=== PATIENT | female | born 1955 | race Caucasian/White ===

== ENCOUNTER 2018-05-11 02:41 | Emergency (ER) | payer SELFPAY ==
[2018-05-11] MEDS ORDERED: SOD CHLORIDE 0.9% 500 ML IV (06:09)
== END 2018-05-11 05:16 | disposition left against medical advice (07) ==
LOC: E/R 05:16
DX: Z53.21 Procedure and treatment not carried out due to patient leaving prior to being seen by health care provider (principal)